=== PATIENT | female | born 1960 | race Asian ===

== ENCOUNTER 2022-01-21 11:15 | Outpatient (CLI) | payer OTHER | END 2022-01-21 20:06 | disposition home or self-care (01) | LOC: RAD 11:15 | PROVIDERS: ATTEND Physician Assistant | DX: M25.561 Pain in right knee (principal) ==

== ENCOUNTER 2022-09-09 14:53 | Outpatient (CLI) | payer OTHER | END 2022-09-09 20:45 | disposition home or self-care (01) | LOC: RAD 14:53 | PROVIDERS: ATTEND Physician Assistant | DX: M54.59 Other low back pain (principal) ==